=== PATIENT | male | born 2000 | race Two or more races ===

== ENCOUNTER 2021-01-03 11:04 | Emergency (ER) | payer OTHER ==
[~2021-01-03] VITALS: Ht 177.8 cm; Wt 83.9 kg
[2021-01-03 11:36] VITALS: BP 134/86
[2021-01-03] MEDS ORDERED: HYDROcodone-ACET 5/325MG TAB PO ONE (13:45)
== END 2021-01-03 13:56 | disposition home or self-care (01) ==
LOC: ER 11:04
DX: S46.911A Strain of unspecified muscle, fascia and tendon at shoulder and upper arm level, right arm, initial encounter (principal); S29.012A Strain of muscle and tendon of back wall of thorax, initial encounter; S76.011A Strain of muscle, fascia and tendon of right hip, initial encounter; V43.52XA Car driver injured in collision with other type car in traffic accident, initial encounter; Y93.89 Activity, other specified; Y92.488 Other paved roadways as the place of occurrence of the external cause; Y99.8 Other external cause status
CPT/HCPCS: 72070; 73030; 73502